=== PATIENT | male | born 1970 | race Hispanic/Latino ===

== ENCOUNTER 2018-06-29 21:41 | Inpatient (IN) | payer BC, OTHER ==
[2018-06-30] MEDS ORDERED: Dextrose 5% in Water 1,000 ML IV PRN (19:38)
[2018-06-30] MEDS ORDERED: Dextrose 50% Abboject 50 ML SYRINGE SLOW IVP PRN (19:38)
[2018-06-30] MEDS ORDERED: HumaLOG 300 UNITS/3 ML VIAL SC PRN (19:38)
[2018-06-30] MEDS ORDERED: Ondansetron ODT 4 MG TAB PO PRN (19:39)
[2018-06-30] MEDS ORDERED: Metoprolol Tartrate 50 MG TAB PO SCH (21:00)
[2018-06-30] MEDS: Metoprolol Tartrate 50 MG TAB PO SCH (21:03)
[2018-06-30 21:13] VITALS: BMI 35.4
[2018-06-30] MEDS ORDERED: CEFAZOLIN 2 GM/50 ML-DEXTROSE 2 GM in Premix Bag 1 BAG IVPB SCH (22:00)
[2018-06-30] MEDS: traMADol HCl 50 MG TAB PO PRN (23:24)
[2018-06-30] MEDS: Diabetic Tussin 200 MG/10 ML UDCUP PO PRN (23:25)
[2018-06-30] MEDS: Benzonatate 100 MG CAP PO PRN (23:30)
[2018-06-30] MEDS: Acetaminophen 325 MG TAB PO PRN (23:34)
[2018-06-30] MEDS: CEFAZOLIN 2 GM/50 ML-DEXTROSE 2 GM in Premix Bag 1 BAG IVPB SCH (23:37)
[2018-07-01 06:37] LABS: INR-International Normal Ratio 1.1; Prothrombin Time 14.2 SEC (12.0-14.7)
[2018-07-01 06:54] LABS: Anion Gap 15 mmol/L (10-20); BUN (Urea Nitrogen) 8 mg/dL (8.9-20.6); Calc. Creatinine Clearance 145 mL/min (70-130); Calcium 8.9 mg/dL (7.8-10.44); Carbon Dioxide 24 mmol/L (22-29); Chloride 100 mmol/L (98-107); Estimated GFR-MDRD 87; Glucose 120 mg/dL (70-105); Potassium 3.5 mmol/L (3.5-5.1); Sodium 135 mmol/L (136-145)
[2018-07-01 07:23] LABS: #Eosinphils 0.1 thou/uL (0.0-0.7); #Lymphocytes 2.1 thou/uL (1.20-3.40); #Monocytes 1.2 thou/uL (0.11-0.59); #Neutrophils 13.1 thou/uL (1.40-6.50); %Basophils 0.1 % (0.0-1.0); %Eosinophils 0.6 % (0.0-10.0); %Lymphocytes 12.5 % (21.0-51.0); %Monocytes 7.5 % (0.0-10.0); %Neutrophils 79.3 % (42.0-75.0); Hemoglobin 13.1 g/dL (14.0-18.0); Mean Corpuscular HGB CONC 33.5 g/dL (32.0-36.0); Mean Corpuscular Hemoglobin 29.6 pg (27.0-31.0); Mean Corpuscular Volume 88.4 fL (78.0-98.0); Mean Platelet Volume 6.6 fL (7.4-10.4); Platelet Count 657 thou/uL (130-400); RBC Distribution Width 11.6 % (11.5-14.5); Red Blood Cell (RBC) Count 4.42 mill/uL (4.70-6.10); White Blood Cell (WBC) Count 16.5 thou/uL (4.8-10.8)
[2018-07-01] MEDS: CEFAZOLIN 2 GM/50 ML-DEXTROSE 2 GM in Premix Bag 1 BAG IVPB SCH ×2 (09:18→16:49)
[2018-07-01] MEDS: Metoprolol Tartrate 50 MG TAB PO SCH ×2 (09:19→22:37)
[2018-07-01] MEDS: Enoxaparin Sodium 40 MG/0.4 ML SYRINGE SC SCH (09:19)
[2018-07-01] MEDS: Aspirin 325 MG TAB PO SCH (09:20)
[2018-07-01] MEDS: Losartan 25 MG TAB PO SCH (09:20)
--- NOTE | 2018-07-01 12:46 | HP ---
PRIMARY CARE DOCTOR: None. CODE STATUS: Full code. TIME OF EVALUATION: 7:40 p.m. CHIEF COMPLAINT: Cough and fever. HISTORY OF PRESENT ILLNESS: This patient has been transferred from [facility]. This patient's insurance did not cover treatment order. The patient had been treated in [facility] since 06/26. He is 48 years old. He is obese, history of diabetes, hypertension, came to the hospital, went to [facility] after having a week of infection with influenza A. The patient also had fever, cough, chills, and chest pain. The symptoms have been present for a week and continually getting worse. The patient tested positive for blood culture for MSSA and also was found to have pneumonia, had been treated for that reason with IV antibiotics, Ancef 2 g IV q.8 hours. The patient will need a PICC line, will need to be seen by Dr. Sarah for planning schedule of the long-term therapy. As reported, the last two blood cultures have been negative. We will consult Dr. Sarah for any further plan in our patient's treatment. REVIEW OF SYSTEMS: The patient has currently no fever, chills, or generalized weakness. RESPIRATORY: The patient has cough, sputum production, and shortness of breath. CARDIOVASCULAR: No chest pain or palpitations. GASTROINTESTINAL: Nausea. No vomiting, diarrhea, or abdominal pain. LEAD DATA ENTRY OPERATOR: No dizziness, headache, or feeling lightheaded. GENITOURINARY: No burning on urination. EXTREMITIES: No leg swelling. All other systems were reviewed and were negative except for the findings mentioned above. PAST MEDICAL HISTORY: Diabetes, hypertension, and morbid obesity. PAST SURGICAL HISTORY: Ankle surgery, nasal septum surgery. FAMILY HISTORY: Father had a history of coronary artery disease with CABG. Mother had a history of hypertension. SOCIAL HISTORY: No alcohol, no smoking history. ALLERGIES: NO KNOWN DRUG ALLERGIES. HOME MEDICATIONS: 1. Lopressor. 2. Zofran. 3. . 4. Valsartan. PHYSICAL EXAMINATION: VITAL SIGNS: On presentation, blood pressure 172/95 with heart rate of 104, temperature 99.1, and oxygen saturation 93% on room air. GENERAL APPEARANCE: The patient is obese, alert, oriented, not in acute distress. HEENT: Eyes; normal conjunctivae. Moist oral mucosa. Anicteric. No JVD. RESPIRATORY: Bilateral air entry. No rales or wheezes. Symmetric expansion. CARDIOVASCULAR: Normal rate, regular rhythm. Mildly tachycardic. No murmurs. No gallop. No edema. ABDOMEN: Soft. Normal bowel sounds. MUSCULOSKELETAL: Baseline range of motion. No sternal tenderness. SKIN: Warm, intact. No pallor. No rash. No redness. Peripheral pulses are present. Capillary refill seems to be intact. NEUROLOGIC: No evidence of any new focal weakness, baseline speech. Cranial nerves seems to be intact. PSYCHIATRIC: The patient has good mood. No anxiety. Oriented, optimal judgment. LABORATORY DATA: Prior to transfer records have been reviewed. The patient had white count initially in the 16, it was 21 and has come down to 13, the last one drawn was in the 18. The sodium also initially was 129 and now has been corrected to normal. Potassium was 3.5, it decreased to 3.1. Chloride 100, CO2 26, BUN 6, creatinine 0.9, glucose 130, albumin 3.1. Lactate was 2 on presentation. ASSESSMENT AND PLAN: The patient presented to the hospital to continue treatment for methicillin-susceptible Staphylococcus aureus bacteremia and pneumonia that has been started on [facility]. 1. Cavitary pneumonia due to Staph aureus. The patient is on cefazolin, we have consulted Dr. Sarah, we will continue IV Ancef. We will place PICC line for long-term antibiotics. The last blood cultures from 06/27 were negative as per regular reports. AFB sputum was negative x1. Echo was done in [facility] and showed no vegetation. The initial plan was for Ancef IV therapy for 4 weeks. 2. Uncontrolled hypertension. Systolic blood pressure is 172. We will reconcile home medications, it will be resumed as needed. Continue Lopressor for now. 3. Recent influenza A infection, completely resolved now. 4. Results of the CT angio of the chest in [facility] show cavitary mass with consolidation in right middle lobe, cavitary nodule consolidation in the right upper lobe. Small right pleural effusion. Consider malignancy, infection, right lymphadenopathy. No pulmonary embolism. Job ID: [id number]
--- NOTE | 2018-07-01 13:27 | PDOC.PN ---
- Subjective Encounter Start Date: 07/01/18 Encounter Start Time: 13:20 Subjective: f/u for cavitary PNA with MSSA on Ancef. Recent Influenza A s/p tx -: Transferred from [facility] due to insurance coverage. Feels ok overall -: some coughing. - Objective Resuscitation Status - Order Detail: 06/30/18 19:39 Resuscitation Status Routine Resuscitation Status: FULL: Full Resuscitation MAR Reviewed: Yes Vital Signs & Weight: Vital Signs (12 hours) Temp Pulse Resp BP Pulse Ox 07/01/18 09:14 92 L 07/01/18 08:00 97.1 F L 95 20 165/107 H 92 L 07/01/18 04:17 98.7 F 71 18 160/93 H 93 L Weight Weight 233 lb Result Diagrams: 07/01/18 05:54 07/01/18 05:54 Additional Labs: Accuchecks 07/01/18 07/01/18 06/30/18 11:47 04:19 20:45 POC Glucose 161 H 120 H 164 H Phys Exam - Physical Examination Constitutional: NAD HEENT: PERRLA, sclera anicteric, oral pharynx no lesions Neck: no nodes, no JVD, supple, full ROM S1, S2 Cardiovascular: RRR, no significant murmur, no rub, gallop Gastrointestinal: soft, non-tender, no distention, positive bowel sounds Musculoskeletal: no edema, pulses present Neurological: normal sensation, moves all 4 limbs Psychiatric: A&O x 3 Skin: normal turgor, cap refill <2 seconds Dx/Plan (1) MSSA (methicillin susceptible Staphylococcus aureus) pneumonia Code(s): J15.211 - PNEUMONIA DUE TO METHICILLIN SUSCEP STAPH Status: Acute Comment: Continue Ancef IV, plan for PICC line placement in am, ID consult appreciated (2) Neutrophilic leukocytosis Code(s): D72.9 - DISORDER OF WHITE BLOOD CELLS, UNSPECIFIED Status: Acute Comment: Secondary to #1, serial CBC (3) DM II (diabetes mellitus, type II), controlled Code(s): E11.9 - TYPE 2 DIABETES MELLITUS WITHOUT COMPLICATIONS Status: Chronic Comment: ISS, ADA - Plan continue antibiotics, respiratory therapy, out of bed/ambulate, DVT proph w/SCDs Stable currently -: Continue Ancef -: OOB/ambulate -: Pulmonary supportive mgmt -: PICC line placement in am * AM Lab: CBC
[2018-07-01] MEDS ORDERED: Saccharomyces boulardii 250 MG CAP PO SCH (15:45)
[2018-07-01] MEDS: Diabetic Tussin 200 MG/10 ML UDCUP PO PRN (16:48)
[2018-07-01] MEDS: Acetaminophen 325 MG TAB PO PRN (17:31)
--- NOTE | 2018-07-01 21:19 | CON ---
DATE OF CONSULTATION: 07/01/2018 REASON: Bacteremia with pneumonia post influenza. HISTORY OF PRESENT ILLNESS: A 48-year-old who has a history of type 2 diabetes mellitus and hypertension and was diagnosed with influenza A on June 22. The patient was released without treatment because he was out of the window for influenza treatment benefit. A few days later, he developed pleuritic chest pain, right anterior aspect of his chest, very intense, general malaise, fever and chills with cough. He was admitted and had cavitary lesions in the right and left side with positive blood cultures with methicillin-sensitive Staph aureus. He was being readied for discharge on IV treatment, but his insurance did not cover this stay at [facility], so he was transferred to [facility] to reinforce treatment. He is feeling a little better. He denies any headaches, still with a little bit of pleuritic pain in the right side. No back pain. No dyspnea. No abdominal pain. No diarrhea. No genitourinary symptoms. No other joint symptoms. PAST MEDICAL HISTORY: Type 2 diabetes, hypertension, obesity, and recent episode of influenza A. SURGICAL HISTORY: Ankle surgery and nasal septum surgery. FAMILY HISTORY: Coronary artery disease, bypass graft surgery. SOCIAL HISTORY: Never smoker, is a nurse examiner. ALLERGIES: NONE. CURRENT MEDICATIONS: 1. Tylenol. 2. Cefazolin. 3. Dextrose. 4. Glucagon. 5. Metoprolol. 6. Tramadol. PHYSICAL EXAMINATION: VITAL SIGNS: T-max 100.1, BP 160/107, pulse 95, respirations 18, O2 saturation 93% on room air. SKIN: Normal. No lymphadenopathy. Ocular movements are normal. HEENT: Pupils are equal. Oral cavity normal. NECK: Supple. LUNGS: Symmetric breath sounds with few crackles here and there. HEART: S1, S2 without murmurs. ABDOMEN: Soft, not distended or tender. No ascites. No bladder distention. EXTREMITIES: No joint inflammatory activity. Cognitive function normal. LABORATORY DATA: White cell count 16.5, hemoglobin 13, platelets 657. Sodium 135, creatinine 0.92, glucose 120. INR 1.1. Clostridium difficile is pending. Two sets of blood cultures from [facility] were positive for methicillin-sensitive Staph aureus. A CT scan there showed cavitary lesions in both lung mares. No echocardiogram was done. ASSESSMENT: 1. Influenza A. 2. Post influenza pneumonia secondary to methicillin-sensitive Staphylococcus aureus with bacteremia. DISCUSSION: The patient had developed hematogenous pneumonia and an endocardial lesion needs to be considered and we will initiate workup with an echocardiogram. It is more likely that he has post influenza staphylococcal pneumonia with bacteremia and cavitation. The patient will have a PICC line inserted and will be kept treated for at least 4 weeks or maybe longer. Other sites of involvement are not apparent at this time. Areas of concern would include spine and joints. I have discussed the treatment procedure with the patient as well as the requirement for the PICC line placement and potential complications from the PICC line as well as potential complications from the therapy administered, particularly thrombosis, diarrhea, and skin rash. The patient understood and agreed with management recommendations. Job ID: [id number] MTDD
[2018-07-01] MEDS: Hydrochlorothiazide 25 MG TAB PO SCH (22:35)
[2018-07-01] MEDS: traMADol HCl 50 MG TAB PO PRN (22:37)
[2018-07-01] MEDS: Benzonatate 100 MG CAP PO PRN (22:41)
[2018-07-02] MEDS: CEFAZOLIN 2 GM/50 ML-DEXTROSE 2 GM in Premix Bag 1 BAG IVPB SCH ×3 (00:34→17:03)
[2018-07-02] MEDS: Acetaminophen 325 MG TAB PO PRN ×2 (00:42→18:13)
[2018-07-02] MEDS: Benzonatate 100 MG CAP PO PRN ×2 (08:29→18:14)
[2018-07-02] MEDS: Metoprolol Tartrate 50 MG TAB PO SCH ×2 (08:30→21:38)
[2018-07-02] MEDS: Aspirin 325 MG TAB PO SCH (08:30)
[2018-07-02] MEDS: Losartan 25 MG TAB PO SCH (08:30)
[2018-07-02] MEDS: Hydrochlorothiazide 25 MG TAB PO SCH ×2 (08:31→21:38)
[2018-07-02] MEDS: Enoxaparin Sodium 40 MG/0.4 ML SYRINGE SC SCH (08:31)
[2018-07-02] MEDS: Saccharomyces boulardii 250 MG CAP PO SCH (08:32)
--- NOTE | 2018-07-02 08:53 | PDOC.PN ---
- Subjective Encounter Start Date: 07/02/18 Encounter Start Time: 10:20 Subjective: Patient with continued left chest/shoulder pain at site of PNA, not change -: from when at [facility]. Persistent dry cough that makes the pain worse. No more -: fever. - Objective Resuscitation Status - Order Detail: 06/30/18 19:39 Resuscitation Status Routine Resuscitation Status: FULL: Full Resuscitation MAR Reviewed: Yes Vital Signs & Weight: Vital Signs (12 hours) Temp Pulse Resp BP Pulse Ox 07/02/18 07:59 98.8 F 87 18 146/93 H 92 L 07/02/18 04:00 99.1 F 95 16 115/75 95 07/02/18 00:00 99.4 F 63 16 147/87 H 94 L Weight Weight 233 lb I&O: 07/01/18 07/02/18 07/03/18 06:59 06:59 06:59 Intake Total 1400 Balance 1400 Result Diagrams: 07/02/18 10:15 07/01/18 05:54 Additional Labs: Accuchecks 07/02/18 07/01/18 07/01/18 05:49 15:46 11:47 POC Glucose 120 H 120 H 161 H Phys Exam - Physical Examination Constitutional: NAD HEENT: moist MMs some rhonchi in NILO Cardiovascular: RRR, no significant murmur Gastrointestinal: soft, positive bowel sounds Musculoskeletal: no edema left PICC line in place Neurological: non-focal, moves all 4 limbs Psychiatric: normal affect, A&O x 3 Dx/Plan (1) MSSA (methicillin susceptible Staphylococcus aureus) pneumonia Code(s): J15.211 - PNEUMONIA DUE TO METHICILLIN SUSCEP STAPH Status: Acute Comment: Continue Ancef IV, plan for PICC line placement in am, ID consult appreciated (2) Bacteremia due to Gram-positive bacteria Code(s): R78.81 - BACTEREMIA Status: Acute Comment: MSSA from post- influenza cavitary pneumonia (3) Sepsis Code(s): A41.9 - SEPSIS, UNSPECIFIED ORGANISM Status: Acute Qualifiers: Sepsis type: methicillin susceptible Staphylococcus aureus Qualified Code(s ): A41.01 - Sepsis due to Methicillin susceptible Staphylococcus aureus Comment: Still with leukocytosis, low grade fever, no tachycardia, borderline O2 sats though not requiring oxygen (4) DM II (diabetes mellitus, type II), controlled Code(s): E11.9 - TYPE 2 DIABETES MELLITUS WITHOUT COMPLICATIONS Status: Chronic Comment: ISS, ADA, diet controlled currently (5) Hypertension Code(s): I10 - ESSENTIAL (PRIMARY) HYPERTENSION Status: Chronic Qualifiers: Hypertension type: essential hypertension Qualified Code(s): I10 - Essential (primary) hypertension Comment: On Metoprolol and Cozaar, decent control - Plan cont current plan of care, continue antibiotics, out of bed/ambulate, DVT proph w/lovenox Arrange outpatient IV Rocephin 2g daily for 4-[address] Sarah -: and he asked for ECHO prior to discharge. * . - Discharge Day Encounter end time: 10:40
[2018-07-02] MEDS ORDERED: Non-Formulary Item 1 EACH (Losartan Potassium [Losartan Potassium] 1 TAB) PO SCH (09:00)
--- NOTE | 2018-07-02 11:34 | SPC ---
LEFT UPPER EXTREMITY PICC LINE WITH ULTRASOUND GUIDANCE: HISTORY: Pneumonia. COMPARISON: None. EXPOSURE: 0.7 minutes. 7,617 mGy*^cm2. FINDINGS: Successful left upper extremity PICC line placement with ultrasound guidance. Trim length is 50 cm. The distal tip is in the right atrium. A single lumen catheter does flush and aspirate without diff iculty. TECHNIQUE: Consent was obtained to perform a left upper extremity PICC line with ultrasound guidance. The left arm was prepped and draped in sterile fashion 1% Lidocaine, buffered with sodium bicarbonate was use d for local anesthesia. Under ultrasound guidance, a micropuncture needle was used to cannulate the basilic vein. A 0.018 guidewire was advanced through the needle to the level of the right atrium. T he tract was dilated. Venous access was confirmed by advancing the wire under fluoroscopy into the p roximal inferior vena cava. The wire was subsequently pulled back to the right atrium. Single-lumen 5 Bulgarian catheter was advanced over the wire. The wire was removed. The catheter does flush and as pirate without difficulty. IMPRESSION: Successful left upper extremity PICC line placement with ultrasound guidance. POS: [facility]
[2018-07-02 11:39] LABS: Band 2 % (5-11); Eosinophils 1 % (0-10); Hemoglobin 13.6 g/dL (14.0-18.0); Lymphocytes 7 % (21-51); MDiff Complete? YES; Mean Corpuscular HGB CONC 34.4 g/dL (32.0-36.0); Mean Corpuscular Hemoglobin 29.9 pg (27.0-31.0); Mean Corpuscular Volume 87.1 fL (78.0-98.0); Mean Platelet Volume 6.6 fL (7.4-10.4); Monocytes 7 % (0-10); Myelocyte 1 % (0-0); Neutrophil 82 % (42-75); Platelet Count 784 thou/uL (130-400); Platelet Morphology Comment Appears Increased; RBC Distribution Width 11.5 % (11.5-14.5); RBC Morphology Normal; Red Blood Cell (RBC) Count 4.55 mill/uL (4.70-6.10); White Blood Cell (WBC) Count 15.9 thou/uL (4.8-10.8)
[2018-07-02] MEDS ORDERED: guaiFENesin/Codeine Phosphate 200 mg/20 mg 10 ml UD Cup PO PRN (13:16)
[2018-07-02] MEDS ORDERED: Heparin 1,000 UNITS/ML VIAL ONE (17:42)
[2018-07-02] MEDS: traMADol HCl 50 MG TAB PO PRN (21:38)
[2018-07-03] MEDS: CEFAZOLIN 2 GM/50 ML-DEXTROSE 2 GM in Premix Bag 1 BAG IVPB SCH ×3 (00:46→17:38)
[2018-07-03 07:38] VITALS: BP 127/68
--- NOTE | 2018-07-03 08:07 | PDOC.PN ---
- Subjective Encounter Start Date: 07/03/18 Encounter Start Time: 09:30 Subjective: Patient with fever to 101 yesterday evening. Resolved now. No -: change in symptoms. Cough unchanged. - Objective Resuscitation Status - Order Detail: 06/30/18 19:39 Resuscitation Status Routine Resuscitation Status: FULL: Full Resuscitation MAR Reviewed: Yes Vital Signs & Weight: Vital Signs (12 hours) Temp Pulse Resp BP Pulse Ox 07/03/18 07:35 98.9 F 69 20 127/68 93 L 07/03/18 04:00 99.0 F 07/03/18 00:00 99.3 F Weight Weight 233 lb I&O: 07/02/18 07/03/18 07/04/18 06:59 06:59 06:59 Intake Total 1400 150 Balance 1400 150 Result Diagrams: 07/02/18 10:15 07/01/18 05:54 Additional Labs: Accuchecks 07/03/18 07/02/18 07/02/18 05:18 22:02 15:46 POC Glucose 137 H 111 H 104 Phys Exam - Physical Examination Constitutional: NAD HEENT: moist MMs Respiratory: no wheezing, no rales some scattered rhonchi Cardiovascular: RRR Gastrointestinal: soft, positive bowel sounds Neurological: non-focal, moves all 4 limbs Psychiatric: normal affect, A&O x 3 Dx/Plan (1) MSSA (methicillin susceptible Staphylococcus aureus) pneumonia Code(s): J15.211 - PNEUMONIA DUE TO METHICILLIN SUSCEP STAPH Status: Acute Comment: Continue Ancef IV, PICC line placed, ID consult appreciated, plan for home on daily Rocephin for 4-6 weeks. (2) Bacteremia due to Gram-positive bacteria Code(s): R78.81 - BACTEREMIA Status: Acute Comment: MSSA from post- influenza cavitary pneumonia (3) Sepsis Code(s): A41.9 - SEPSIS, UNSPECIFIED ORGANISM Status: Acute Qualifiers: Sepsis type: methicillin susceptible Staphylococcus aureus Qualified Code(s ): A41.01 - Sepsis due to Methicillin susceptible Staphylococcus aureus Comment: Still with leukocytosis, spiked a fever above 101 yesteday, now resolved (4) DM II (diabetes mellitus, type II), controlled Code(s): E11.9 - TYPE 2 DIABETES MELLITUS WITHOUT COMPLICATIONS Status: Chronic Comment: ISS, ADA, diet controlled currently (5) Hypertension Code(s): I10 - ESSENTIAL (PRIMARY) HYPERTENSION Status: Chronic Qualifiers: Hypertension type: essential hypertension Qualified Code(s): I10 - Essential (primary) hypertension Comment: On Metoprolol and Cozaar, decent control - Plan cont current plan of care, continue antibiotics, DVT proph w/lovenox, DVT proph w/SCDs Will continue IV abx, blood cultures drawn after fever yesterday, will -: discuss plan with Dr. Sarah before d/c home. * . - Discharge Day Encounter end time: 09:45 Pulmonology Consult: Meds - Medications MAR Reviewed: Yes Medications: Current Medications Acetaminophen (Tylenol) 650 mg PO Q4H PRN PRN Reason: Headache/Fever/Mild Pain (1-3) Last Admin: 07/02/18 18:13 Dose: 650 mg Aspirin (Aspirin) 325 mg PO DAILY [facility] Last Admin: 07/02/18 08:30 Dose: 325 mg Benzonatate (Tessalon) 100 mg PO Q4H PRN PRN Reason: Cough Last Admin: 07/02/18 18:14 Dose: 100 mg Dextrose/Water (Dextrose 50%) 25 gm SLOW IVP PRN PRN PRN Reason: Hypoglycemia Enoxaparin Sodium (Lovenox) 40 mg SC 0900 [facility] Last Admin: 07/02/18 08:31 Dose: 40 mg Glucagon (Glucagon) 1 mg IM PRN PRN PRN Reason: Hypoglycemia Guaifenesin (Robitussin Sf) 200 mg PO Q6H PRN PRN Reason: Cough Last Admin: 07/01/18 16:48 Dose: 200 mg Guaifenesin/Codeine Phosphate (Robitussin Ac) 10 ml PO Q6H PRN PRN Reason: Cough Last Admin: 07/02/18 22:46 Dose: 10 ml Hydrochlorothiazide (Hydrochlorothiazide) 12.5 mg PO BID [facility] Last Admin: 07/02/18 21:38 Dose: 12.5 mg Dextrose/Water (D5w) 1,000 mls @ 0 mls/hr IV .Q0M PRN PRN Reason: Hypoglycemia Cefazolin Sodium/Dextrose 2 gm (/ Device) 50 mls @ 100 mls/hr IVPB 0100,0900, 1700 [facility] Last Admin: 07/03/18 00:46 Dose: 50 mls Insulin Human Lispro (Humalog) 0 units SC .MILD SLIDING SCALE PRN PRN Reason: Mild Correctional Scale Losartan Potassium (Cozaar) 50 mg PO DAILY [facility] Last Admin: 07/02/18 08:30 Dose: 50 mg Metoprolol Tartrate (Lopressor) 50 mg PO QAM [facility] Last Admin: 07/02/18 08:30 Dose: 50 mg Metoprolol Tartrate (Lopressor) 100 mg PO QPM [facility] Last Admin: 07/02/18 21:38 Dose: 100 mg Ondansetron HCl (Zofran Odt) 4 mg PO Q6H PRN PRN Reason: Nausea/Vomiting Saccharomyces Boulardii (Florastor) 250 mg PO DAILY [facility] Last Admin: 07/02/18 08:32 Dose: 250 mg Tramadol HCl (Ultram) 50 mg PO Q6H PRN PRN Reason: Moderate Pain (4-6) Last Admin: 07/02/18 21:38 Dose: 50 mg - Allergies Allergies/Adverse Reactions: Allergies Allergy/AdvReac Type Severity Reaction Status Date / Time No Known Allergies Allergy Verified 04/20/15 15:59
[2018-07-03] MEDS: Losartan 25 MG TAB PO SCH (09:11)
[2018-07-03] MEDS: Hydrochlorothiazide 25 MG TAB PO SCH (09:11)
[2018-07-03] MEDS: Saccharomyces boulardii 250 MG CAP PO SCH (09:11)
[2018-07-03] MEDS: Enoxaparin Sodium 40 MG/0.4 ML SYRINGE SC SCH (09:12)
[2018-07-03] MEDS: Aspirin 325 MG TAB PO SCH (09:13)
[2018-07-03] MEDS: Metoprolol Tartrate 50 MG TAB PO SCH (09:13)
[2018-07-03] MEDS: Benzonatate 100 MG CAP PO PRN (09:13)
[2018-07-03 11:58] VITALS: TEMP 99
[2018-07-03] MEDS ORDERED: cefTRIAXone\\ROCEPHIN 2 GM in Sodium Chloride 0.9% 100 ML IVPB SCH (16:30)
--- NOTE | 2018-07-04 01:44 | DIS ---
DATE OF ADMISSION: 06/30/2018 DATE OF DISCHARGE: 07/03/2018 PRIMARY CARE PHYSICIAN: Zay Aponte. REASON FOR ADMISSION: Transfer for MSSA pneumonia from [facility] for insurance purposes. DIAGNOSES AT DISCHARGE: 1. Methicillin sensitive Staph aureus pneumonia with cavitation. 2. Bacteremia with methicillin sensitive Staph aureus. 3. Sepsis, resolved. 4. Diabetes mellitus type 2. 5. Hypertension. PROCEDURE: PICC line. CONSULTATION: Infectious Disease, Dr. Sarah. SUMMARY OF HOSPITAL COURSE: This is a 48-year-old male with a past medical history of diabetes and hypertension. He presented to [facility] for fevers and cough a week after having influenza A. He had a positive blood culture for methicillin-sensitive Staph aureus at their hospital and was found to have pneumonia with cavitary lesions. He was started on IV Ancef. The patient was then transferred to our hospital due to insurance purpose. A PICC line was placed in our hospital. He continued with IV Ancef. He did spike one fever of 101 during the hospitalization, which came down quickly. He also had continued bilateral chest pain with significant cough. Other than that, he was doing well, eating well, ambulating well, and eager to go home on the day of discharge. Dr. Sarah was consulted with Infectious Disease. He recommended echocardiogram and then cleared him to be discharged on daily Rocephin 2 g IV for the next 4 to 6 weeks. During laboratory, repeat blood cultures were drawn during his febrile spell in the hospital. He is having no growth to date, but they are still pending final report. DISCHARGE MANAGEMENT: Discharged home with Home Health. ACTIVITY: As tolerated. DIET: Healthy heart low-sodium diet, IV therapy instructions, PICC line care. FOLLOWUP: Follow up with Dr. Sarah in 2 weeks. DISCHARGE MEDICATIONS: 1. Rocephin 2 g IV daily via the [facility]. I believe they will be doing that in his house. 2. Aspirin 325 mg daily. 3. Guaifenesin with codeine 10 mL every 6 hours as needed for cough, 200 mL dispensed. 4. Metoprolol tartrate 25 mg two tabs twice a day. 5. Tramadol 50 mg 1-2 tabs every 6 hours as needed for pain, 45 tablets dispensed. 6. Hydrochlorothiazide 12.5 mg daily. 7. Losartan 50 mg daily. 8. Metoprolol tartrate 50 mg in the morning and 100 mg at night. Arranging the details of this discharge took 35 minutes. Job ID: [id number]
== END 2018-07-03 18:25 | disposition home health service (06) | DRG 871 ==
LOC: T4-A 06-30 18:43
PROVIDERS: ADMIT Internal Medicine; ATTEND Internal Medicine
PROC: 3E02340 Introduction of Influenza Vaccine into Muscle, Percutaneous Approach (ICD-10-PCS; 2018-06-30)
PROC: 3E0234Z Introduction of Serum, Toxoid and Vaccine into Muscle, Percutaneous Approach (ICD-10-PCS; 2018-06-30)
PROC: 02H633Z Insertion of Infusion Device into Right Atrium, Percutaneous Approach (ICD-10-PCS; principal; 2018-07-02)
PROC: B244ZZZ Ultrasonography of Right Heart (ICD-10-PCS; 2018-07-02)
DX: A41.01 Sepsis due to Methicillin susceptible Staphylococcus aureus (principal); J15.211 Pneumonia due to Methicillin susceptible Staphylococcus aureus; J90 Pleural effusion, not elsewhere classified; A15.0 Tuberculosis of lung; E11.9 Type 2 diabetes mellitus without complications; E66.9 Obesity, unspecified; I10 Essential (primary) hypertension; D72.829 Elevated white blood cell count, unspecified; Z98.890 Other specified postprocedural states; Z23 Encounter for immunization; Z68.35 Body mass index [BMI] 35.0-35.9, adult
CPT/HCPCS: 36415; 36416; 36569; 80048; 82274; 85007; 85025; 85027; 85610; 87045; 87046; 87077; 87324; 87449; 87899; 93306; C1751; J0696; J1644; J1650; J7050

== ENCOUNTER 2018-08-06 14:41 | Outpatient (CLI) | payer OTHER ==
--- NOTE | 2018-08-06 15:57 | RAD ---
2 VIEWS CHEST: Date: 08/06/18 PROVIDED CLINICAL HISTORY: Pneumonia. FINDINGS: No comparisons. Heart size appears normal. Elevation of the right hemidiaphragm of unknown chronicity. Left upper ext remity PICC line with tip terminating in the region of the cavoatrial junction. No focal consolidatio n, pleural fluid, or pneumothorax apparent. IMPRESSION: No evidence for acute cardiopulmonary process. POS: [facility]
== END 2018-08-06 14:42 | disposition home or self-care (01) ==
LOC: BICRAD 14:41
PROVIDERS: ATTEND Internal Medicine Infectious Disease
DX: J18.9 Pneumonia, unspecified organism (principal)
CPT/HCPCS: 71046